=== PATIENT | female | born 1955 | race Two or more races ===

== ENCOUNTER 2020-02-10 12:15 | Emergency (ER) | payer MEDICARE, MEDICAID ==
[~2020-02-10] VITALS: Ht 165.1 cm; Wt 81.6 kg
[2020-02-10 12:56] LABS: Urine Bacteria FEW /hpf (None Seen); Urine Blood 2+ /uL (Negative); Urine Hyaline Cast FEW /lpf (0 - 2); Urine Specific Gravity 1.017 (1.001-1.035); Urine WBC 2380 /hpf (0 - 5); Urine WBC Clumps PRESENT /hpf (None Seen)
[2020-02-10 14:04] VITALS: BP 109/60
== END 2020-02-10 13:55 | disposition home or self-care (01) ==
LOC: ER 12:15
DX: N39.0 Urinary tract infection, site not specified (principal); I10 Essential (primary) hypertension; R42 Dizziness and giddiness; F17.210 Nicotine dependence, cigarettes, uncomplicated
CPT/HCPCS: 70450; 81001

== ENCOUNTER 2020-04-06 11:29 | Emergency (ER) | payer MEDICARE, MEDICAID ==
[~2020-04-06] VITALS: Ht 167.6 cm; Wt 79.4 kg
[2020-04-06 12:04] VITALS: BP 161/71
[2020-04-06] MEDS ORDERED: KETOROLAC TROMETH 60MG/2ML VIAL IM ONE (12:30)
== END 2020-04-06 13:00 | disposition home or self-care (01) ==
LOC: ER 11:29
DX: M10.9 Gout, unspecified (principal); F17.210 Nicotine dependence, cigarettes, uncomplicated; I10 Essential (primary) hypertension; F12.10 Cannabis abuse, uncomplicated
CPT/HCPCS: 96372; 99283; J1885

== ENCOUNTER 2021-11-21 16:03 | Emergency (ER) | payer MEDICARE, MEDICAID ==
[~2021-11-21] VITALS: Ht 165.1 cm; Wt 81.6 kg
[2021-11-21 17:40] VITALS: BP 139/80
== END 2021-11-21 17:52 | disposition home or self-care (01) ==
LOC: ER 16:03
DX: H57.89 Other specified disorders of eye and adnexa (principal); F41.9 Anxiety disorder, unspecified; I10 Essential (primary) hypertension; J44.9 Chronic obstructive pulmonary disease, unspecified; F17.210 Nicotine dependence, cigarettes, uncomplicated; Z88.5 Allergy status to narcotic agent
CPT/HCPCS: 70450